=== PATIENT | female | born 1970 | race Caucasian/White ===

== ENCOUNTER 2017-07-03 11:36 | Emergency (ER) | payer BC ==
[~2017-07-03] VITALS: Ht 167.6 cm; Wt 110.2 kg
[2017-07-03 11:42] VITALS: BP 138/96
[2017-07-03] MEDS ORDERED: SYNTHROID25 MCG PO (11:44)
[2017-07-03] MEDS ORDERED: ANUSOL-HC25 MG R (12:19)
== END 2017-07-03 12:27 | disposition home or self-care (01) ==
LOC: ED 11:36
DX: K60.2 Anal fissure, unspecified (principal); F17.200 Nicotine dependence, unspecified, uncomplicated; Z98.51 Tubal ligation status; Z98.890 Other specified postprocedural states; Z79.899 Other long term (current) drug therapy